=== PATIENT | male | born 1960 | race Caucasian/White ===

== ENCOUNTER → 2019-02-17 | Outpatient (CLI) | payer OTHER ==
--- NOTE | 2019-02-17 11:19 | CARD ---
MR#: [id number] Date of Study: 02/17/2019 Ordering Physician: Estefania ARGUELLO, Referring Physician: Naima LOFTON: Rebecca Metz APPROVED REPORT EXAM: Two-dimensional and M-mode echocardiogram with Doppler and color Doppler. Other Information Quality : AverageHR: 82bpm Technically limited study due to body habitus. INDICATION Murmur 2D DIMENSIONS RVDd3.3 (2.9-3.5cm)Left Atrium(2D)3.2 (1.6-4.0cm) IVSd2.1 (0.7-1.1cm)Aortic Root(2D)3.1 (2.0-3.7cm) LVDd3.2 (3.9-5.9cm)LVOT Diameter2.2 (1.8-2.4cm) PWd1.0 (0.7-1.1cm)LVDs2.3 (2.5-4.0cm) FS (%) 28.3 %SV22.6 ml LVEF(%)56.1 (>50%) Aortic Valve AoV Peak Maxwell.147.4cm/sAoV VTI23.3cm AO Peak GR.8.7mmHgLVOT Peak Maxwell.137.9cm/s LVOT VTI 25.59cmAO Mean GR.5mmHg MATTI (VMAX)2.75nh1ZZF (VTI)4.28cm2 Mitral Valve MV E Saqpydii34.2cm/sMV DECEL [id number] MV A Newrabyu72.4cm/sMV QWZ51nf E/A Ratio0.8MVA (PHT)2.88cm2 TDI E/Lateral E'13.0E/Medial E'17.1 Pulmonary Valve PV Peak Idlwseeq57.4cm/sPV Peak Grad.2mmHg Tricuspid Valve RAP [id number] Pulmonary Vein S1 Khaszlxx99.2cm/sD2 Jfzsofqv26.3cm/s PVa [id number] LEFT VENTRICLE The left ventricle is normal size. There is moderate septal left ventricular hypertrophy. The left ve ntricular systolic function is normal and the ejection fraction is within normal range. The Ejection Fraction is 60-65%. There is normal LV segmental wall motion. Transmitral Doppler flow pattern is Gra de I-abnormal relaxation pattern. RIGHT VENTRICLE The right ventricle is normal size. The right ventricular systolic function is normal. ATRIA The left atrium size is normal. The right atrium size is normal. The interatrial septum is intact wit h no evidence for an atrial septal defect or patent foramen ovale as noted on 2-D or Doppler imaging. AORTIC VALVE The aortic valve is thickened but opens well. Doppler and Color Flow revealed no significant aortic r egurgitation. There is no significant aortic valvular stenosis. MITRAL VALVE The mitral valve is thickened but opens well. Mild posterior mitral leaflet prolapse. There is no jen ral valve stenosis. Doppler and Color-flow revealed trace mitral regurgitation. TRICUSPID VALVE The tricuspid valve is normal in structure and function. Doppler and Color Flow revealed trace tricus pid regurgitation. There is no tricuspid valve stenosis. PULMONIC VALVE The pulmonic valve is not well visualized. Doppler and Color Flow revealed no pulmonic valvular regur gitation. There is no pulmonic valvular stenosis. GREAT VESSELS The aortic root is normal in size. The ascending aorta is normal in size. The IVC is normal in size a nd collapses >50% with inspiration. PERICARDIAL EFFUSION There is no pleural effusion. There is no evidence of significant pericardial effusion. Critical Notification Critical Value: No <Conclusion> The left ventricular systolic function is normal and the ejection fraction is within normal range. Th e Ejection Fraction is 60-65%. There is normal LV segmental wall motion. Signed by : Mo Fernandez, Electronically Approved : 02/17/2019 11:18:30
== END | disposition home or self-care (01) ==
LOC: ECHO 09:54
PROVIDERS: ATTEND Family Medicine
DX: I51.7 Cardiomegaly (principal)
CPT/HCPCS: 93306

== ENCOUNTER → 2019-02-22 | Outpatient (CLI) | payer OTHER ==
--- NOTE | 2019-02-22 14:44 | KCIC ---
Coronary calcium score CT chest without contrast History: Cardiovascular Screening. Family History Technique: With retrospective electrocardiogram gating axial reconstructed noncontrast images of the chest at the level of the coronary arteries was performed. Images were post processed on workstation and calcium score calculated using the modified Agatston Janowitz protocol. Findings: Total coronary calcium score is 111.1. This is based on the calcium score of 21.2 of the left main coronary artery, 89.9 of the left anterior descending artery, score of 0 of the left circumflex artery and score of 0 of the right coronary artery. Noncoronary findings demonstrate 3 mm left lower lobe lung nodule (series 4 image 39). 4 mm middle lobe lung nodule (series 4 image 17) are seen. Linear opacities in the right lower lobe likely scarring/atelectasis. IMPRESSION: 1. Total coronary calcium score is 111.1. 2. Bilateral lung nodules measuring <4 mm. Per Fleischner Society guidelines for incidentally found solid nodules measuring less than 6 mm, no follow-up is necessary if patient is considered at low risk for lung cancer. If patient is considered to be at high risk, such as with history of smoking, then CT follow-up in about 12 months can be considered. Electronically signed by: Nura Rai MD (02/22/2019 2:41 PM) [id number]
== END | disposition home or self-care (01) ==
LOC: KCIC CT 08:17
PROVIDERS: ATTEND Family Medicine
DX: Z13.6 Encounter for screening for cardiovascular disorders (principal); R91.8 Other nonspecific abnormal finding of lung field; Z82.49 Family history of ischemic heart disease and other diseases of the circulatory system
CPT/HCPCS: 75571

== ENCOUNTER → 2020-09-20 | Outpatient (CLI) | payer BC, OTHER ==
--- NOTE | 2020-09-20 07:59 | RAD ---
INDICATION: Reason: back pain / Spl. Instructions: / History: COMPARISON: None. FINDINGS: Grayscale, color and spectral Doppler ultrasound images are obtained of the abdominal aorta. Some portions of the aorta are not well seen secondary to overlying structures obscuring. From proximal to distal the abdominal aorta measures in millimeters: 23 x 24 proximal 17 x 24 mid 22 x 12 distal There is calcific atherosclerosis. Common iliac arteries do not appear dilated IMPRESSION: * No abdominal aortic aneurysm. Electronically signed by: Jerry Lord MD (09/20/2020 7:56 AM) [id number]
--- NOTE | 2020-09-20 08:43 | RAD ---
Chest, PA and Lateral: Technique: PA and lateral views of the chest were obtained. History: Solitary lung nodule. Comparison: None. Findings: The heart and pulmonary vasculature appear within normal limits. The lungs are clear. The pleural ma rgins are clear. Impression: No acute chest process is seen. Electronically signed by: Guerrero Yates MD (09/20/2020 8:41 AM) [id number]
== END ==
LOC: US 06:48
PROVIDERS: ATTEND Chiropractor
DX: I70.0 Atherosclerosis of aorta (principal); R91.1 Solitary pulmonary nodule
CPT/HCPCS: 71046; 76770

== ENCOUNTER → 2021-08-19 | Outpatient (CLI) | payer BC ==
--- NOTE | 2021-08-19 14:03 | KCIC ---
XR KNEE _3 VIEWS_LT History: Reason: Acute Lt knee pain / Spl. Instructions: Medial knee pain 1 wk, no known injury, swel ling. / History: Technique: 3 views left knee Comparison: None. Findings: Mild left knee degenerative changes most prominent within the medial and patellofemoral compartments. Ossification adjacent to the intercondylar notch. Small knee joint effusion. No dislocation. No acut e fracture. Impression: 1. Mild left knee DJD. 2. Ossification adjacent to the intercondylar notch, may relate to calcified intra-articular loose b kary or central osteophyte. CT or MRI can further assess if clinically indicated. Electronically signed by: Rad Mccoy DO (08/19/2021 2:01 PM) [id number]
== END ==
LOC: KCIC 09:17
PROVIDERS: ATTEND Family Medicine
DX: M17.12 Unilateral primary osteoarthritis, left knee (principal); M25.462 Effusion, left knee; M25.862 Other specified joint disorders, left knee
CPT/HCPCS: 73562